=== PATIENT | male | born 1980 | race Caucasian/White ===

== ENCOUNTER 2016-10-08 23:38 | Emergency (ER) | payer SELFPAY ==
[~2016-10-08] VITALS: Ht 162.6 cm; Wt 81.6 kg
[2016-10-08 23:38] VITALS: BP_SYST 161
--- NOTE | 2016-10-08 23:38 | NUR ---
Patient to ER bed [facility] for evaluation. Report given to Jaqueline SOTO.
--- NOTE | 2016-10-08 23:54 | NUR ---
Patient is brought in by [facility] for medical clearance. Patient reports that he is diabetic and takes insulin. Patient requests to have diabetes checked. No other complaints/injuries per patient or as noted.
--- NOTE | 2016-10-08 23:56 | NUR ---
Dr. Grant at bedside.
[2016-10-09 00:13] VITALS: BP_SYST 161
--- NOTE | 2016-10-09 00:13 | NUR ---
Patient given written and verbal discharge instructions and verbalizes understanding. ER MD discussed with patient the results and treatment provided. Patient in stable condition. ID arm band removed. Rx of Metformin given. Patient educated on pain management and to follow up with PMD in 2 days. Pain Scale 0/10 Opportunity for questions provided and answered.
== END 2016-10-09 00:13 ==
LOC: SED 23:38
DX: Z02.89 Encounter for other administrative examinations (principal); R51 Headache; E11.9 Type 2 diabetes mellitus without complications
CPT/HCPCS: 99283